=== PATIENT | male | born 1985 | race Two or more races ===

== ENCOUNTER 2016-12-11 15:42 | Emergency (ER) | payer OTHER ==
--- NOTE | 2016-12-11 16:47 | EDPHY ---
H & P Time Seen by Provider: 12/11/16 16:18 HPI/ROS: CHIEF COMPLAINT: Scalp laceration, head injury HISTORY OF PRESENT ILLNESS: 31-year-old male presents to the emergency department with large scalp laceration. 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 He had positive loss of consciousness. He has mild headache. He has no neck pain. No visual changes. No chest pain or difficulty breathing. Denies abdominal pain. Denies injury to his upper lower extremities. He believes his last tetanus shot was 4 years ago. REVIEW OF SYSTEMS: Constitutional: No fever, no chills. Eyes: No double or blurry vision. ENT: No sore throat. Respiratory: No cough, no shortness of breath. Cardiac: No chest pain. Gastrointestinal: No abdominal pain, vomiting or diarrhea. Genitourinary: No dysuria. Musculoskeletal: No neck or back pain. Skin: Scalp laceration. No rashes. Neurological: headache. Past Medical/Surgical History: Negative Social History: Smoking Status: Never smoked Physical Exam: General Appearance: Alert, no distress. Mentating normally and answering questions appropriately. Eyes: Pupils equal and round. Extraocular motions are all intact. ENT: Mouth: Mucous membranes moist. No dental injury or malocclusion. Respiratory: No wheezing, rhonchi, or rales, lungs are clear to auscultation. Cardiovascular: Regular rate and rhythm. Gastrointestinal: Abdomen is soft and nontender, no masses, no rebound or guarding, bowel sounds normal. Neurological: Alert and oriented x 3, cranial nerves II through XII grossly intact Skin: Large, 10 cm scalp laceration to the top of the head. No evidence of retained foreign body. No active bleeding noted. Warm and dry, no rashes. Musculoskeletal: Nontender to palpate along the cervical, thoracic or lumbar spine. Neck is supple. Extremities: Full range of motion and no peripheral edema. Psychiatric: Patient is oriented X 3, there is no agitation. Constitutional: Initial Vital Signs Temperature (C) 36.9 C 12/11/16 15:51 Heart Rate 92 12/11/16 15:51 Respiratory Rate 18 12/11/16 15:51 Blood Pressure 106/57 L 12/11/16 15:51 O2 Sat (%) 96 12/11/16 15:51 Allergies/Adverse Reactions: No Known Allergies Allergy (Verified 12/11/16 15:51) Home Medications: Medication Instructions Recorded NK [No Known Home Meds] 04/13/13 Medical Decision Making - Diagnostics Imaging Results: Imaging Impressions Head CT 12/11/16 16:39 Impression: 1. There is no acute intracranial abnormality identified on this unenhanced CT evaluation. 2. Laceration/hematoma along the right scalp vertex. If there is further clinical concern regarding the patient's symptoms, MR imaging is suggested, if not otherwise contraindicated. Findings were discussed with ISABELLE CONTEH PA-C at 17:08, on 12/11/2016. Imaging: Discussed imaging studies w/ machine design engineer Radiologist Procedures: Laceration repair. Verbal consent was obtained from the patient. The 10 cm laceration on the scalp was anesthetized using 1% lidocaine with epinephrine. The wound was irrigated with saline, draped and explored to its base with a gloved finger. There were no deep structures involved. The wound was repaired with 17 tono. The wound repair was complex. The procedure was performed by myself. ED Course/Re-evaluation: 31-year-old male presents to the emergency department with closed head injury and large scalp laceration. Patient had positive loss of consciousness. Given his large scalp laceration, positive loss of consciousness and ongoing headache , I recommended CT imaging of the brain. I discussed the pros and cons including radiation exposure the patient agreed. CT imaging was normal. Laceration was repaired, see procedure note. Differential Diagnosis: Head injury including but not limited to concussion, skull fracture, intraparenchymal contusion, subarachnoid, subdural and epidural hematoma. Departure - Departure Disposition: Home, Routine, Self-Care Clinical Impression: Scalp laceration Qualifiers: Encounter type: initial encounter Qualified Code(s): S01.01XA - Laceration without foreign body of scalp, initial encounter Head injury Qualifiers: Encounter type: initial encounter Qualified Code(s): S09.90XA - Unspecified injury of head, initial encounter Instructions: Laceration (ED), Care For Your Stitches (ED), Head Injury (ED) Additional Instructions: Wound Care Follow-Up: Removal of sutures in 7 days. Suture removal is complimentary in uncomplicated cases. Infection or abnormal findings would require reevaluation by the MD. In that case, you may be billed. Avoid any activity that might put you at risk for another head injury for at least 1 week. Return to the emergency department if he developed worsening headache, vomiting, altered mental status, or if you feel worse in any way.
[2016-12-11 17:59] VITALS: BP 131/68; PULSE 88; RESP 16; TEMP 98.2; O2SAT 94
== END 2016-12-11 17:58 | disposition home or self-care (01) ==
PROC: 0HQ0XZZ Repair Scalp Skin, External Approach (ICD-10-PCS; principal; 2016-12-11)
DX: S01.01XA Laceration without foreign body of scalp, initial encounter (principal); S09.90XA Unspecified injury of head, initial encounter; W20.8XXA Other cause of strike by thrown, projected or falling object, initial encounter; Y92.69 Other specified industrial and construction area as the place of occurrence of the external cause; Y99.0 Civilian activity done for income or pay